=== PATIENT | female | born 1985 | race Two or more races ===

== ENCOUNTER 2022-12-07 22:39 | Emergency (ER) | payer OTHER ==
[~2022-12-07] VITALS: Ht 167.6 cm; Wt 92.0 kg
[2022-12-07 23:15] LABS: Basophils # (auto) 0 10 ^3/uL (0-0.2); Basophils % (auto) 0.7 % (0.0-2.0); Eosinophils # (auto) 0.1 10 ^3/uL (0-0.8); Eosinophils % (auto) 1.6 % (0.0-7.0); Monocytes # (auto) 0.5 10 ^3/uL (0-1.3); Nucleated Red Blood Cells % 0.1 %; Red Blood Cells 4.33 10^6/uL (4.0-5.20)
[2022-12-07] MEDS ORDERED: LORazepam 0.5 MG TAB PO ONE (23:15)
[2022-12-07 23:17] LABS: Hematocrit 24.1 % (36.0-46.0); Lymphocytes # (auto) 1.9 10 ^3/uL (0.4-5.4); Lymphocytes % (auto) 27.7 % (10.0-50.0); Mean Corpuscular Hemoglobin 15.8 pg (28.0-32.0); Mean Corpuscular Hgb Conc. 28.5 g/dL (32.0-36.0); Mean Corpuscular Volume 55.7 fL (80.0-100.0); Monocytes % (auto) 6.9 % (0.0-12.0); Neutrophils # (auto) 4.3 10 ^3/uL (1.6-8.6); Neutrophils % (auto) 63.1 % (37.0-80.0); White Blood Cell 6.9 10^3/uL (4.4-10.8)
[2022-12-07 23:19] LABS: Red Cell Distribution Width 20.2 % (11.8-14.3)
[2022-12-07 23:23] LABS: Hemoglobin 6.8 g/dL (12.2-16.2)
[2022-12-07 23:45] LABS: Alanine Aminotransferase 56 U/L (7-40); Albumin 4.5 g/dL (3.2-4.8); Alkaline Phosphatase 82 U/L (46-116); Anion Gap 10.9 (5-15); Aspartate Aminotransferase 30 U/L (13-40); BUN/Creatinine Ratio 6.3 (10.0-20.0); Bilirubin, Total 0.6 mg/dL (0.2-1.0); Blood Urea Nitrogen 5 mg/dL (9-23); Calcium 9.2 mg/dL (8.7-10.4); Carbon Dioxide 22.1 mmol/L (20-30); Chloride 107 mmol/L (98-107); Glucose 118 mg/dL (74-106); Potassium 3.4 mmol/L (3.5-5.1); Sodium 140 mmol/L (136-145); Total Protein 7.2 g/dL (5.7-8.2)
[2022-12-08] VITALS (7 sets, daily range): BP systolic 111–123; BP diastolic 62–80; PULSE 79–94; RESP 13–19; TEMP 98.3–99; O2SAT 99–100
[2022-12-08 00:25] LABS: Hypochromia Marked; Platelet Estimate Adequate
[2022-12-08 01:08] LABS: Urine Bacteria NONE SEEN /hpf (None Seen); Urine Blood 3+ /uL (Negative); Urine Clarity HAZY (Clear); Urine Color Red (Yellow); Urine Protein, UAD 2+ (Negative); Urine Specific Gravity 1.005 (1.001-1.035); Urine Urobilinogen Normal (Negative); Urine WBC 32 /hpf (0 - 5)
[2022-12-08 01:40] LABS: Rapid Influenza A Negative (Negative); Rapid Influenza B Negative (Negative)
[2022-12-08 01:42] LABS: COVID19 ANTIGEN SOFIA FIA NEGATIVE (NEGATIVE)
== END 2022-12-08 10:00 | disposition short-term general hospital (02) ==
LOC: ER 22:39
DX: R07.9 Chest pain, unspecified (principal); R06.02 Shortness of breath; D64.9 Anemia, unspecified
CPT/HCPCS: 36415; 36430; 71045; 80053; 81001; 81025; 83880; 84484; 85025; 85379; 86850; 86900; 86901; 86920; 87426; 87804; 93005; 99285; P9016